=== PATIENT | male | born 1960 ===

== ENCOUNTER 2017-05-22 10:09 | Emergency (ER) | payer MEDICARE ==
[2017-05-22 10:13] VITALS: BMI 34.2
[2017-05-22 10:15] VITALS: TEMP 97.6
--- NOTE | 2017-05-22 11:00 | ED PDOC ---
HPI: Headache Time Seen by Provider: 05/22/17 10:36 Chief Complaint (Nursing): Headache History Per: Patient Additional Complaint(s): Pt. states for the past 2 days he's had an intermittent, atraumatic, gradual onset occipital headache. Reports pain initially starts in the neck which radiates up into the head and into both shoulders. Pain is worse with movement of neck and both shoulders. Also reports that when he takes Tylenol pain does alleviate but returns once it wears off. Denies trauma, fever, sudden onset of headache, N/V, light sensitivity, weakness. Of note, pt. states he's had the same pain in the past but never sought medical attention until today. - Risk Factors SAH Risk Factors: Nest Degree Relative(s) W/SAH, Sudden Onset Of Pain, Worst Headache Of Life Past Medical History Reviewed: Historical Data, Nursing Documentation, Vital Signs Vital Signs: Last Vital Signs Temp 97.6 F 05/22/17 10:14 Pulse 81 05/22/17 10:14 Resp 17 05/22/17 10:14 BP 132/81 05/22/17 10:14 Pulse Ox 97 05/22/17 10:14 - Medical History PMH: HTN - Surgical History Other surgeries: gastric bypass - Family History Family History: States: No Known Family Hx - Home Medications Home Medications: Ambulatory Orders Medication Instructions Recorded Cyclobenzaprine [Cyclobenzaprine 10 mg PO Q8 PRN #10 tab 05/22/17 HCl] - Allergies Allergies/Adverse Reactions: Allergies Allergy/AdvReac Type Severity Reaction Status Date / Time Penicillins Allergy VOMITING Verified 07/23/16 08:08 Review of Systems ROS Statement: Except As Marked, All Systems Reviewed And Found Negative Musculoskeletal: Positive for: Neck Pain Physical Exam - Physical Exam Appears: Positive for: Well, Non-toxic, No Acute Distress Head Exam: Positive for: ATRAUMATIC, NORMAL INSPECTION, NORMOCEPHALIC Skin: Positive for: Normal Color, Warm. Negative for: Rash Eye Exam: Positive for: Normal appearance ENT: Positive for: Normal ENT Inspection. Negative for: Pharyngeal Erythema, Tonsillar Exudate, Tonsillar Swelling Neck: Positive for: Limited ROM (secondary to pain), Pain On Movement Of Neck Cardiovascular/Chest: Positive for: Regular Rate, Rhythm Respiratory: Positive for: Normal Breath Sounds. Negative for: Respiratory Distress Gastrointestinal/Abdominal: Positive for: Normal Exam, Soft. Negative for: Tenderness Back: Positive for: Normal Inspection, Muscle Spasm (b/l cervical area). Negative for: L CVA Tenderness, R CVA Tenderness, Vertebral Tenderness ( including cervical spine) Extremity: Positive for: Normal ROM (to both shoulders actively without tenderness or deformity), Other (equal drum drier strenght b/l) Neurologic/Psych: Positive for: Alert, Oriented. Negative for: Aphasia, Facial Droop - ECG O2 Sat by Pulse Oximetry: 97 - Progress ED Course And Treament: Ultram 50mg PO, flexeril 10mg PO, cervical spine x-ray ordered. 1200 C-spine x-ray: moderate DJD, ? accessory bone growth from ? C7 or T1 X-rays reviewed with Dr. Allison who recommends CT cervical spine w/o contrast. Cervical spine CT w/o contrast ordered. 1340 CT cervical spine: No fracture/dislocation. Mild levoscoliosis. Osteophytes about multiple disc spaces without disc space narrowing. Otherwise unremarkable. Pt. reports complete relief of pain. Informed of results. Disposition - Clinical Impression Clinical Impression: Neck pain - Patient ED Disposition Is Patient to be Admitted: No - Disposition Referrals: Carmela Rand [Outside] Disposition: Routine/Home Disposition Time: 13:40 Condition: IMPROVED Prescriptions: Cyclobenzaprine [Cyclobenzaprine HCl] 10 mg PO Q8 PRN #10 tab PRN Reason: Muscle Spasm Instructions: Neck Pain Forms: [employer] (Tuvaluan) Print Language: PAKISTANI
--- NOTE | 2017-05-22 13:09 | CT ---
PROCEDURE: CT Cervical Spine without contrast HISTORY: Neck pain. COMPARISON: None available. TECHNIQUE: Axial computed tomography images were obtained of the cervical spine without the use of intravenous contrast. Coronal and sagittal reformatted images were created and reviewed. Radiation dose: Total exam DLP = 590.97 mGy-cm. This CT exam was performed using one or more of the following dose reduction techniques: Automated exposure control, adjustment of the mA and/or kV according to patient size, and/or use of iterative reconstruction technique. FINDINGS: VERTEBRAE: The vertebral bodies are maintained in height. Normal vertebral alignment is maintained. There is minimal levo scoliotic curvature of the cervical spine. The atlantoaxial articulation and odontoid process are intact. DISCS/SPINAL CANAL/NEURAL FORAMINA: No significant central canal or neural foraminal stenosis. The intervertebral disc spaces are maintained in height. There are large anterior osteophytes about the C3-4, C4-5 and C5-6 intervertebral disc spaces. There is no significant neural foraminal stenosis. There is no central spinal stenosis. PARASPINAL SOFT TISSUES: Unremarkable. OTHER FINDINGS: None. IMPRESSION: No fracture/dislocation. Mild levoscoliosis. Osteophytes about multiple disc spaces without disc space narrowing. Otherwise unremarkable.
--- NOTE | 2017-05-22 13:30 | RAD ---
PROCEDURE: Cervical Spine Radiographs. HISTORY: Pain. COMPARISON: None. FINDINGS: BONES: Vertebral bodies maintained in height. Normal alignment maintained. The atlantoaxial articulation is intact. The odontoid process is grossly unremarkable though suboptimally evaluated. DISC SPACES: Intervertebral disc spaces are maintained in height. There are osteophytes seen about the C3-4, 4-5 and C5-6 disc spaces. SOFT TISSUES: Normal. No prevertebral soft tissue swelling. OTHER FINDINGS: None. IMPRESSION: No fracture or dislocation. Multilevel spondylotic change.
[2017-05-22 13:56] VITALS: BP 128/81; PULSE 80; RESP 18; O2SAT 99
== END 2017-05-22 13:54 | disposition home or self-care (01) ==
LOC: H.ER 10:09
DX: R51 Headache (principal); M54.2 Cervicalgia; I10 Essential (primary) hypertension; Z88.0 Allergy status to penicillin

== ENCOUNTER 2017-05-26 08:37 | Emergency (ER) | payer MEDICARE ==
[2017-05-26 08:37] VITALS: BMI 34.2
--- NOTE | 2017-05-26 10:08 | ED PDOC ---
HPI: General Adult Time Seen by Provider: 05/26/17 09:33 Chief Complaint (Nursing): Anxiety Chief Complaint (Provider): Anxiety History Per: Patient History/Exam Limitations: no limitations Onset/Duration Of Symptoms: Days (x 3) Current Symptoms Are (Timing): Still Present Additional Complaint(s): 57-year-old male, with a history of anxiety and bipolar disorder, presents to ED complaining of depression for 3 days. Reports panicking. Denies Suicidal ideation or Homicidal ideation. PMD: Kalin Valentine Psychiatrist: ? Past Medical History Reviewed: Historical Data, Nursing Documentation, Vital Signs Vital Signs: Last Vital Signs Temp 97.6 F 05/26/17 11:17 Pulse 78 05/26/17 11:17 Resp 19 05/26/17 11:17 BP 128/78 05/26/17 11:17 Pulse Ox 97 05/28/17 14:37 - Medical History PMH: Anxiety, Bipolar Disorder, HTN - Surgical History Surgical History: Cholecystectomy - Family History Family History: States: Unknown Family Hx - Home Medications Home Medications: Ambulatory Orders Medication Instructions Recorded Cyclobenzaprine [Cyclobenzaprine 10 mg PO Q8 PRN #10 tab 05/22/17 HCl] - Allergies Allergies/Adverse Reactions: Allergies Allergy/AdvReac Type Severity Reaction Status Date / Time Penicillins Allergy VOMITING Verified 07/23/16 08:08 Review of Systems ROS Statement: Except As Marked, All Systems Reviewed And Found Negative Psych: Positive for: Anxiety. Negative for: Suicidal ideation, Other ( Homicidal ideation ) Physical Exam - Reviewed Nursing Documentation Reviewed: Yes Vital Signs Reviewed: Yes - Physical Exam Appears: Positive for: No Acute Distress Head Exam: Positive for: ATRAUMATIC, NORMAL INSPECTION, NORMOCEPHALIC Skin: Positive for: Normal Color Eye Exam: Positive for: Normal appearance Cardiovascular/Chest: Positive for: Regular Rate, Rhythm Respiratory: Positive for: Normal Breath Sounds. Negative for: Respiratory Distress Neurologic/Psych: Positive for: Alert, Oriented (x 3) - ECG O2 Sat by Pulse Oximetry: 97 (RA) Pulse Ox Interpretation: Normal Medical Decision Making Medical Decision Making: Time: 09:53 Plan: - Crisis Evaluation Upon provider evaluation patient is medically stable, and requires no further treatment in the ED at this time. Patient will be discharged. Counseling was provided and all questions were answered regarding diagnosis and need for follow up with psychiatrist. There is agreement to discharge plan. Return if symptoms persist or worsen. Stable for discharge. Scribe Attestation: Documented by Tree Darden, acting as a scribe for Cayla Pérez MD Provider Scribe Attestation: All medical record entries made by the Scribe were at my direction and personally dictated by me. I have reviewed the chart and agree that the record accurately reflects my personal performance of the history, physical exam, medical decision making, and the department course for this patient. I have also personally directed, reviewed, and agree with the discharge instructions and disposition. Disposition - Clinical Impression Clinical Impression: Anxiety - Patient ED Disposition Is Patient to be Admitted: No - Disposition Disposition: Routine/Home Disposition Time: 10:51 Condition: STABLE Additional Instructions: FOLLOW-UP ADVISED. Instructions: Anxiety, Adult (DC) Forms: [employer] (Syriac) Print Language: [place]
[2017-05-26 11:18] VITALS: BP 128/78; PULSE 78; RESP 19; TEMP 97.6
[2017-05-28 14:37] VITALS: O2SAT 97
== END 2017-05-26 11:18 | disposition home or self-care (01) ==
LOC: H.ER 08:37
DX: F41.9 Anxiety disorder, unspecified (principal); F31.9 Bipolar disorder, unspecified; I10 Essential (primary) hypertension; Z88.0 Allergy status to penicillin